=== PATIENT | male | born 1955 | race Caucasian/White ===

== ENCOUNTER 2023-09-23 15:13 | Emergency (ER) | payer BC, SELFPAY ==
[2023-09-23 15:16] VITALS: BP 122/56
[2023-09-23 15:45] VITALS: BP 106/54
--- NOTE | 2023-09-23 16:58 | ED.GENMED ---
History of Present Illness
General
Chief Complaint: Allergic Reaction
Source: patient
Exam Limitations: none
Time Seen by Provider: 09/23/23 16:30
Nursing documentation reviewed up to this point in time: agreed with
Travel History
Have you had any contact with someone who has COVID-19?: No
Do you have any symptoms of coronavirus? Fever > 100 degrees, chills, cough, shortness of breath, sore throat, loss of taste or smell, muscle aches, or headache?: No
History of Present Illness
History of Present Illness:
pt is a 67 y/o M with h/o HTN, gerd
here becuase of flushin gand lightheadedness that started after lunch today
ate at a restaurant
[employer]
felt fine in the restaurant
got home and around 2:30 pm he walked into the house and felt flushed, looked red in face and chest and back and felt some lightheadedness
the was wondering if he was having an allergic reaction but not sure wha tto
he has not had any trouble swallowing, voice change, cp, sob, ysncope, abdmoinal pain, vomiting, diarrhea, itchiness
Past History
Past History
ED Past Medical History: GERD, HTN and Other (esophageal stricture)
ED Past Surgical History: Tonsilectomy and Other (Hernia repair)
Social History
Tobacco: Non-smoker
Alcohol: None
Family History
Family History: Other (Follow melanoma, mother with dementia)
Review of Systems
Review of Systems
Allergies reviewed?: Yes
All Other Systems: Not applicable
Phy Exam
Physical Exam
Physical Exam:
GENERAL: Alert , in no apparent distress
EYE: pupils equal and reactive
NECK: Supple
ENT: o/p clr, mmm.
CARDIAC: Regular rate and rhythm .
LUNGS: Clear breath sounds bilaterally, no acute respiratory distress, no wheezes/rales/rhonchi
ABDOMEN: Soft, without focal tenderness, no r/g, no cvat, normal bowel sounds
NEUROLOGICAL: Alert and oriented, no focal neuro deficits
SKIN: Warm and dry, skin intact. no rash
no flushing
no hives
MUSCULOSKELETAL: No edema, well perfused. neg zay's sign
PSYCH: Normal and appropriate interaction.
Course
Orders/Labs/Results
Orders:
Orders
09/23/23 15:19
EKG [Electrocardiogram (*1)] Urgent
Reason for Study: Fatigue / Weakness
EKG- Treatment ONCE
Vital Signs
Initial and Last Documented VS:
Initial Vital Signs
Temp Pulse Resp BP Pulse Ox
98.7 F 77 16 122/56 96
09/23/23 15:16 09/23/23 15:16 09/23/23 15:16 09/23/23 15:16 09/23/23 15:16
Last Documented Vital Signs
Temp Pulse Resp BP Pulse Ox
97 F 77 16 138/57 96
09/23/23 17:12 09/23/23 15:16 09/23/23 15:16 09/23/23 17:12 09/23/23 15:16
MDM/Problems Addressed
Differential Diagnosis Includes:
food allergy, infection, flushing, hypertension, scromboid poisoning
MDM/Problems Addressed:
67 y/o M with h/o HTN
says that he has intentionally lost some weight recently and has had low salt diet.
still on his benicar for bp
and has noticed his BP is usually around low 100s rather than 130s
he still has taken it daily
sometimes when he stands, he feels a little lightheaded, but that has been very sparingly intermittent for years
today he ate lunch at a restaurant and came home and suddenly was flushed and lightheaded
came here and symptoms have fully resolved
he felt a little stronger Heart beat while getting EKG but that also resolved
No sore throat, no itchiness in his throat, no wheezing, no shortness of breath, no chest pain, no syncope, no headache. No one else ate the fish that he ate at the restaurant. He did not have any nausea vomiting diarrhea. He has no history of
any food allergies.
On exam the patient is very pleasant, well-appearing, was walking around in the hallway without any difficulty. He had negative orthostatics which were checked by me. He has no rash. His lungs are clear. He has no voice changes. I discussed the
case with the ED attending Dr. Rivers. I was wondering if maybe he could have had a very minor squamoid poisoning, is very unlikely since it was very short-lived however it is possible. Patient's EKG is nonischemic. I did not feel that there was
any utility in ordering basic labs but I did offer him blood work in case he was wondering could he have some electrolyte imbalance however given his symptoms being fully resolved he declined.
*Critical Care Note
Total Time (30-74mins, 75-104mins- exclusive of procedures): Not Applicable
ED Attending Note
-
Portions of this chart may have been created with voice recognition software.� Occasional wrong word or��sound alike� substitutions may have occurred due to the inherent limitations of voice recognition software.
Discharge Plan
Departure
Patient Disposition: Home (Routine Discharge)
Date of Disposition: 09/23/23
Time of Disposition: 17:24
Patient with high blood pressure during this ER visit?: No
Condition: Good
Discharge Problem:
Flushing
Instructions: Dizziness, Nonvertigo, (DC)
Referrals:
Viral Coe DO [Family Provider] - Follow up in 2-3 days
Activity Restrictions/Additional Instructions:
we are not sure the cause of your symptoms today. It is possible it could have been from contaminated fish however it is unlikely given the fact that it was so short-lived. Your blood pressure readings here were normal. I suppose you could be
having some low blood pressure episodes because of your recent weight loss and lower salt diet. You can talk to your doctor about decreasing your dose of your Benicar. Please return for any worsening symptoms like recurrent lightheadedness,
passing out, chest pain or shortness of breath, fever or chills or any concerns. Otherwise follow-up with your doctor
Interventions
Interventions:
*Risk Screen - Suicide Last Done: 09/23/23 15:16
*General Assessment Last Done: 09/23/23 15:16
*Neglect/Abuse Screening Last Done: 09/23/23 15:16
ED- Fall Risk Assessment Last Done: 09/23/23 17:29
*ED COVID-19 Vaccine History Last Done: 09/23/23 15:16
*Nursing Disposition Last Done: 09/23/23 17:29
ED- Cardiac Assessment Last Done: 09/23/23 15:45
ED- Pulmonary Assessment Last Done: 09/23/23 15:45
ED-Skin Assessment Last Done: 09/23/23 15:45
Discharge Date and Time
Discharge Date/Time: 09/23/23 17:29
[2023-09-23 17:10] VITALS: BP 126/63
[2023-09-23 17:12] VITALS: BP 138/57
[2023-09-23 17:16] VITALS: BP 126/63
== END 2023-09-23 17:29 | disposition home or self-care (01) ==
LOC: EMR 15:13
PROVIDERS: EMERGENCY PHYSICIAN Emergency Medicine; FAMILY PHYSICIAN Family Medicine
DX: R23.2 Flushing (principal); I10 Essential (primary) hypertension; K21.9 Gastro-esophageal reflux disease without esophagitis
CPT/HCPCS: 99283; 93005